=== PATIENT | female | born 2005 | race Caucasian/White ===

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

== ENCOUNTER 2023-03-22 13:18 | Emergency (ER) | payer BC, SELFPAY ==
[2023-03-22 13:19] VITALS: BP 131/66; PULSE 93; RESP 16; TEMP 36.7; O2SAT 100
--- NOTE | 2023-03-22 14:35 | PC.NURSE ---
Pt states she thinks she is due her implanon has moved. Pt states her normal periods are spotting in nature. Reports vaginal spotting that started today. Denies pelvic pain. Pt called [employer] appointment made for tomorrow, pt mother called a friend who works in [employer] office. Who encouraged pt to come to ER for blood test .
--- NOTE | 2023-03-22 14:49 | ED.FEMALEGU ---
HPI - Female Genitourinary General Chief complaint: Vaginal Bleeding Stated complaint: vag bleeding, ? Time Seen by Provider: 03/22/23 14:02 Source: patient Mode of arrival: ambulatory Limitations: no limitations History of Present Illness HPI Narrative: Ranjeet is a 18-year-old female patient presenting to the ER today for possible . She reports she is having some vaginal bleeding-spotting over the last few days. Reports that she is having very little to no bleeding currently. Denies any pelvic pain, urinary symptoms, or back pain. Does have the Nexplanon in the left upper arm that was placed it back in September. She has taken at home test and it was negative but felt as though she needed to come into the emergency room to have further evaluation. Related Data Allergies Allergy/AdvReac Type Severity Reaction Status Date / Time No Known Allergies Allergy Verified 03/22/23 13:21 Review of Systems Review of Systems: Pertinent positives per HPI. Patient denies any fever, chills, rash, headache, visual changes, dizziness, cough, runny nose, sore throat, shortness of breath, chest pain, palpitations, nausea, vomiting, diarrhea, constipation, abdominal pain, or any urinary issues. PMFSH Comments At the time of my signature, I reviewed and agree with the nursing past medical, surgical, social, and family history. There is no relevant family history pertinent to the patient complaint. Exam Narrative: General: Well-developed, well nourished, in no apparent distress. Head: Normocephalic, atraumatic. Cardio: Regular rate and rhythm, s1 and s2 normal, no murmur appreciated. Resp: Clear to auscultation bilaterally, no rhonchi, rales, wheezing or rubs. Abdomen: Soft, pliable, bowel sounds present in all quadrants, non-tender to palpation, no organomegly, no CVAT tenderness. : Deferred Course Course Emergency Course: Portions of this record may have been created with voice recognition software. Vital Signs Vital signs: Vital Signs Temperature 36.7 C 03/22/23 13:19 Pulse Rate 93 03/22/23 13:19 Respiratory Rate 16 03/22/23 13:19 Blood Pressure 131/66 03/22/23 13:19 Pulse Oximetry 100 03/22/23 13:19 Oxygen Delivery Room Air 03/22/23 13:19 Temperature 36.7 C 03/22/23 13:19 Pulse Rate 93 03/22/23 13:19 Respiratory Rate 16 03/22/23 13:19 Blood Pressure 131/66 03/22/23 13:19 Pulse Oximetry 100 03/22/23 13:19 Oxygen Delivery Room Air 03/22/23 13:19 Vital signs reviewed MDM - Female Genitourinary MDM Narrative Medical decision making narrative: At the time of visit patient is resting comfortably on the exam table. Patient appears to be nontoxic. test is negative in the clinic today. Patient has palpable Implanon in the left upper arm. She has a OBGYN appointment tomorrow. I suspect patient is having irregular uterine bleeding due to Implanon placement. Supportive measures were discussed with the patient and they voiced understanding discharge instructions and agrees to treatment plan. Return precautions reviewed Differential Diagnosis Differential diagnosis: Likely other (, dysfunctional vaginal bleeding, Nexplanon in place) Lab Data Labs: UCG Bedside Result Negative Reference Range: Negative Discharge Plan Discharge Clinical Impression: Vaginal bleeding, Encounter for test with result negative Patient Disposition: Home, Self-Care Condition: Stable Instructions: Antibiotic Form, Abnormal (Dysfunctional) Uterine Bleeding (ED) Additional Instructions: test is negative in the clinic today Follow-up with your OBGYN as scheduled Follow-up/Referrals: PHYSICIAN,SIMULATION ENGINEER [Primary Care Provider] - Time of Disposition: 15:00 Quality NIHSS Nursing Documentation ED NIHSS nursing documentation: reviewed/agree
== END 2023-03-22 15:44 | disposition home or self-care (01) ==
PROVIDERS: Emergency Provider Nurse Practitioner Family
DX: N93.9 Abnormal uterine and vaginal bleeding, unspecified (principal)
CPT/HCPCS: 81025; 99283